=== PATIENT | male | born 1965 | race Hispanic/Latino ===

== ENCOUNTER 2018-09-01 10:27 | Observation (INO) | payer BC, OTHER ==
[~2018-09-01] VITALS: Ht 167.6 cm; Wt 81.6 kg
[~2018-09-01 10:27] MED LIST: GLYBURIDE5 MG PO; LOVASTATIN20 MG PO; METFORMIN HCL1000 MG PO
[2018-09-01] MEDS ORDERED: ASPIRIN 81 MG CHEW TAB PO ONE (10:30)
[2018-09-01] MEDS ORDERED: ONDANSETRON HCL INJ 2 MG/ML VIAL IV ONE (11:00)
[2018-09-01] MEDS ORDERED: MORPHINE SULFATE INJ 4 MG/ML INJ IV ONE (11:00)
[2018-09-01 11:10] LABS: BASOPHILS # (AUTO) 0.1 (0.0-0.1); BASOPHILS % 0.6 % (0.0-1.0); EOSINOPHILS # (AUTO) 0.1 (0.0-0.4); EOSINOPHILS % 0.9 % (0.0-6.0); HEMATOCRIT 45.2 % (38.2-49.6); HEMOGLOBIN 15.9 g/dL (14.0-18.0); LYMPHOCYTES # (AUTO) 2.5 (1.0-3.2); LYMPHOCYTES % 18.5 % (18.0-39.1); MEAN CORPUSCULAR HEMOGLOBIN 30.6 pg (28-32); MEAN CORPUSCULAR HGB CONC 35.2 g/dL (31-35); MEAN CORPUSCULAR VOLUME 87.1 fL (81-99); MONOCYTES # (AUTO) 0.9 (0.2-0.8); MONOCYTES % 6.7 % (4.4-11.3); NEUTROPHILS # (AUTO) 9.9 (2.1-6.9); NEUTROPHILS % 72.7 % (38.7-80.0); PLATELET COUNT 204 x10e3/uL (140-360); RED BLOOD COUNT 5.19 x10e6/uL (4.3-5.7)
--- NOTE | 2018-09-01 11:11 | Diagnostic Imaging Report ---
EXAMINATION: CHEST SINGLE (PORTABLE) COMPARISON: None INDICATION: Chest tightness ^ERMD ORDER ^[id number] ^1038 ^Y DISCUSSION: Frontal view of the chest obtained at 1042 hours. HEART AND MEDIASTINUM: The cardiomediastinal silhouette is unremarkable. LINES: None. LUNGS: Diffusely hyperinflated. Nodule in the right upper lobe measures 10 mm. No infiltrate PLEURA: No pleural effusion or pneumothorax. BONES AND SOFT TISSUES: No focal osseous lesion. The soft tissues are normal. IMPRESSION: Pulmonary hyperinflation suggestive of small airways disease. Small right upper lobe nodule. Recommend further characterization with CT of the chest on an outpatient basis. Signed by: Dr. Maranda Mitchell MD on 09/01/2018 11:08 AM
[2018-09-01 11:18] LABS: INR 0.9
[2018-09-01 11:19] LABS: PARTIAL THROMBOPLASTIN TIME 26.8 seconds (23.8-35.5)
[2018-09-01 11:20] LABS: CLARITY,URINE SL CLOUDY (CLEAR); COLOR,URINE YELLOW (YELLOW); LEUKOCYTE ESTERASE ,URINE TRACE (NEGATIVE); NITRITE,URINE NEGATIVE (NEGATIVE)
[2018-09-01 11:21] LABS: BILIRUBIN,URINE NEGATIVE (NEGATIVE); KETONES,URINE NEGATIVE (NEGATIVE); PROTEIN,URINE DIPSTICK NEGATIVE (NEGATIVE); URINE UROBILINOGEN 0.2 mg/dL (0.2 - 1)
[2018-09-01 11:26] LABS: ALANINE AMINOTRANSFERASE 18 IU/L (0-55); ALBUMIN 3.5 g/dL (3.5-5.0); ALBUMIN/GLOBULIN RATIO 0.9 (0.8-2.0); ALKALINE PHOSPHATASE 83 IU/L (40-150); ANION GAP 12.8 mmol/L (8-16); BLOOD UREA NITROGEN 15 mg/dL (7-26); BUN/CREATININE RATIO 14 (6-25); CALCIUM 9.2 mg/dL (8.4-10.2); CARBON DIOXIDE 23 mmol/L (22-29); CHLORIDE 101 mmol/L (98-107); CREATINE KINASE 49 IU/L (30-200); CREATININE, SERUM 1.04 mg/dL (0.72-1.25); EST GLOMERULAR FILTRATION RATE > 60 ML/MIN (60-); GLUCOSE 383 mg/dL (74-118); POTASSIUM 3.8 mmol/L (3.5-5.1); SODIUM 133 mmol/L (136-145)
[2018-09-01 11:31] LABS: BACTERIA,URINE RARE /HPF; EPITHELIAL CELLS,URINE MODERATE /LPF
[2018-09-01 11:32] LABS: YEAST,URINE RARE
[2018-09-01 11:34] LABS: STREPTOCOCCUS GRP A ANTIGEN POSITIVE (NEGATIVE)
[2018-09-01 11:41] LABS: INFLUENZAE A&B ANTIGEN (RAPID) NEGATIVE (NEGATIVE)
[2018-09-01] MEDS ORDERED: INSULIN REGULAR, HUMAN 100 UNIT/1 ML 3ML VIAL IV ONE (11:45)
[2018-09-01] MEDS: SODIUM CHLORIDE 0.9% 1000ML 1,000 ML IV SCH ×2 (11:55→21:03)
--- NOTE | 2018-09-01 12:00 | NUR ---
IV NS GOING AT 100 ML PER HOUR; INSULIN GIVEN IV; PT GCS 15 PINK WARM DRY; INSTRUCTED TO PT AND THAT WE WILL RE-CHECK THE GLUCOSE AT 1230 AND TO NOTIFY DESK IF HE GETS DIZZY, WEAK, SWEATTY OR UNWELL IN ANY WAY. CALL [place].
[2018-09-01] MEDS ORDERED: PENICILLIN G BENZATHINE LA 1.2 MU TBX IM NR (12:45)
[2018-09-01] MEDS ORDERED: DEXTROSE 50% SYRINGE 50 ML IV PRN (13:15)
[2018-09-01] MEDS ORDERED: MORPHINE SULFATE 2 MG/ML SYR IV PRN (13:15)
--- OUTSIDE RECORDS SUMMARY | 2018-09-01 13:39 | XMS REPORT ---
Author Author [facility] Address Unknown Phone Unavailable Care Team Providers Care Digital Marketing Specialist Name Role Phone Audi COLEMAN Unavailable Unavailable Problems This patient has no known problems. Allergies, Adverse Reactions, Alerts This patient has no known allergies or adverse reactions. Medications This patient has no known medications. Results Test Description Test Time Test Comments Text Results Atomic Results Result Comments CHEST SINGLE (PORTABLE) 2018-09-01 11:06:00 [place] [address] Patient Name: DILAN WARREN MR #: [id number] : 1965 Age/Sex: 53/M Req #: [id number] Adm Physician: Ordered by: TEJA FONG CAPTAIN WAITER Report #: [id number] Location: ER Room/Bed: Procedure: [id number] DX/CHEST SINGLE (PORTABLE) Exam Date: 09/01/18 Exam Time: 1038 REPORT STATUS: Signed EXAMINATION: CHEST SINGLE (PORTABLE) COM PARISON: None INDICATION: Chest tightness ERMD ORDER [id number] Y DISCUSSION: Frontal view of the chest obtained at 1042 hours. HEART AND MEDIASTINUM: The cardiomediastinal silhouette is unremarkable. LINES: None. LUNGS: Diffusely hyperinflated. Nodule in the right upper lobe measures 10 mm. No infiltrate PLEURA: No pleural effusion or pneumothorax. BONES AND SOFT TISSUES: No focal osseous lesion. The soft tissues are normal. IMPRESSION: Pulmonary hyperinflation suggestive of small airways disease. Small right upper lobe nodule. Recommend further characterization with CT of the chest on an outpatient basis. Signed by: Dr. Dia Mitchell MD on 09/01/2018 11:08 AM Dictated By: DIA MITCHELL MD 1108 Transcribed By: PRITESH on 09/01/181107 COPY TO: TEJA FONG CAPTAIN WAITER
[2018-09-01] MEDS ORDERED: KETOROLAC TROMETHAMINE 30 MG/ML VIAL IV PRN (15:45)
[2018-09-01] MEDS: ONDANSETRON HCL INJ 2 MG/ML VIAL IV PRN (16:30)
[2018-09-01] MEDS: ASPIRIN 81 MG ENTERIC COATED PO SCH (16:30)
[2018-09-01] MEDS: INSULIN LISPRO 100 UNIT/1 ML 3ML VIAL SQ SCH ×2 (17:10→20:46)
[2018-09-01 19:31] LABS: CREATINE KINASE MB 0.3 ng/mL (0-5.0)
[2018-09-02 02:29] LABS: CREATINE KINASE MB 0.3 ng/mL (0-5.0)
[2018-09-02] MEDS: MORPHINE SULFATE INJ 4 MG/ML INJ IV PRN ×3 (05:37→19:55)
[2018-09-02] MEDS: ONDANSETRON HCL INJ 2 MG/ML VIAL IV PRN ×2 (05:37→13:47)
[2018-09-02] MEDS: SODIUM CHLORIDE 0.9% 1000ML 1,000 ML IV SCH (05:37)
[2018-09-02 06:42] LABS: BASOPHILS # (AUTO) 0.1 (0.0-0.1); BASOPHILS % 0.8 % (0.0-1.0); EOSINOPHILS # (AUTO) 0.2 (0.0-0.4); HEMOGLOBIN 15.1 g/dL (14.0-18.0); LYMPHOCYTES # (AUTO) 2.9 (1.0-3.2); LYMPHOCYTES % 24.4 % (18.0-39.1); MEAN CORPUSCULAR HEMOGLOBIN 30.5 pg (28-32); MEAN CORPUSCULAR HGB CONC 34.3 g/dL (31-35); MEAN CORPUSCULAR VOLUME 88.9 fL (81-99); MONOCYTES # (AUTO) 0.8 (0.2-0.8); MONOCYTES % 6.8 % (4.4-11.3); NEUTROPHILS # (AUTO) 7.7 (2.1-6.9); NEUTROPHILS % 65.6 % (38.7-80.0); PLATELET COUNT 208 x10e3/uL (140-360); RED BLOOD COUNT 4.95 x10e6/uL (4.3-5.7); RED CELL DISTRIBUTION WIDTH 12.1 % (11.7-14.4)
--- NOTE | 2018-09-02 06:52 | NUR ---
RECEIVED REPORT FROM SHANELL Kraus RN FOR CONTINUATION OF CARE
[2018-09-02 06:59] LABS: ALANINE AMINOTRANSFERASE 17 IU/L (0-55); ALBUMIN/GLOBULIN RATIO 0.7 (0.8-2.0); ALKALINE PHOSPHATASE 78 IU/L (40-150); ANION GAP 12.2 mmol/L (8-16); BLOOD UREA NITROGEN 20 mg/dL (7-26); BUN/CREATININE RATIO 21 (6-25); CALCIUM 8.9 mg/dL (8.4-10.2); CARBON DIOXIDE 21 mmol/L (22-29); CHLORIDE 108 mmol/L (98-107); CHOL/HDL RATIO 5.1 (3.9-4.7); CHOLESTEROL 209 MD/DL (0-199); CREATININE, SERUM 0.94 mg/dL (0.72-1.25); EST GLOMERULAR FILTRATION RATE > 60 ML/MIN (60-); GLUCOSE 225 mg/dL (74-118); HDL CHOLESTEROL 41 MG/DL (40-60); LDL CHOLESTEROL 103 MG/DL (60-130); POTASSIUM 4.2 mmol/L (3.5-5.1); SODIUM 137 mmol/L (136-145); TRIGLYCERIDES 327 MG/DL (0-149)
[2018-09-02] MEDS: INSULIN LISPRO 100 UNIT/1 ML 3ML VIAL SQ SCH ×4 (08:26→21:50)
[2018-09-02] MEDS: ASPIRIN 81 MG ENTERIC COATED PO SCH (08:49)
[2018-09-02] MEDS ORDERED: ALBUTEROL/IPRATROPIUM 3 ML NEB NEB PRN (09:00)
--- NOTE | 2018-09-02 09:18 | NUR ---
PT WENT FOR CT CHEST
[2018-09-02] MEDS: FLUTICASONE PROPIONATE NASAL SPRAY NS SCH ×2 (09:55→16:51)
[2018-09-02] MEDS: LORATADINE 10 MG TAB PO SCH (09:55)
[2018-09-02] MEDS: CEFTRIAXONE SOD 1 GM/NS 50 ML 50 ML IV SCH (09:55)
[2018-09-02] MEDS: GUAIFENESIN 600 MG TAB PO SCH ×2 (09:55→21:50)
--- NOTE | 2018-09-02 09:55 | Diagnostic Imaging Report ---
EXAM: CT Chest without contrast INDICATION: Lung nodule on CXR. COMPARISON: Chest radiograph 09/01/2018. TECHNIQUE: Chest was scanned utilizing a multidetector helical scanner from the lung apex through the level of the adrenal glands without administration of IV contrast. Coronal and sagittal reformations were obtained. Routine protocol was performed. Dose modulation, iterative reconstruction, and/or weight based adjustment of the mA/kV was utilized to reduce the radiation dose to as low as reasonably achievable. RADIATION DOSE: Total DLP: 551.3 mGy*cm COMPLICATIONS: None FINDINGS: LINES/ TUBES: None. LUNGS AND AIRWAYS: The nodular opacity noted on chest radiograph in the right midlung likely represents a bone island in the right anterior fourth rib. Calcified granuloma in the right middle lobe and left lower lobe. Mild biapical pleural-parenchymal opacity. Scattered centrilobular and paraseptal emphysematous changes. Dependent atelectatic changes. PLEURA: The pleural spaces are clear. HEART AND MEDIASTINUM: The thyroid gland is normal. No mediastinal, hilar or axillary lymphadenopathy. No cardiomegaly or pericardial effusion. Scattered atherosclerotic changes within the thoracic aorta, branch vessels, and coronary vessels. UPPER ABDOMEN: Limited non-contrast views of the upper abdomen show no abnormality within the visualized liver, spleen, or adrenal glands. BONES/SOFT TISSUES: No acute bony findings. No suspicious lytic or blastic lesions. IMPRESSION: The nodular opacity noted on chest radiograph in the right midlung corresponds to likely rib bone island. Mild emphysematous changes of the lungs. Scattered coronary atherosclerosis. Signed by: Dr. Ashwini Lopez MD on 09/02/2018 9:52 AM
--- NOTE | 2018-09-02 13:38 | NUR ---
PT RESTING QUIETLY WATCHING TV. C/O A SLIGHT PAIN IN THE SINUSES. ASKED FOR SOME PAIN MEDICINE
--- NOTE | 2018-09-02 15:18 | NUR ---
PT SAYS HE IS FEELING BETTER AFTER THE PAIN MED. PAIN NOW 10/05. RESTING QUIETLY WAITING FOR A ROOM
--- NOTE | 2018-09-02 18:22 | NUR ---
PT C/O SINUS PAIN 01/02. PT AWAITING ADMIT AT THIS TIME. NAD
--- NOTE | 2018-09-02 19:55 | NUR ---
PT PLACED ON TELE [id number]
[2018-09-02 20:15] VITALS: BP 116/67
--- NOTE | 2018-09-02 20:15 | NUR ---
Received patient from ER via stretcher. AAOx3 and obeys commands. No s/s of resp distress. Denies pain at this time. Has IV to L arm 20# s/l. Skin intact and no wounds. Amb to restroom. Oriented to room. Bed locked lowest position and call light within reach and instructed to call for assistance.
[2018-09-02 20:35] VITALS: BP 116/67
[2018-09-02] MEDS ORDERED: ATORVASTATIN 20 MG TAB PO SCH (21:00)
[2018-09-02 22:07] VITALS: BP 116/67
[2018-09-03] VITALS: BP 100/59
[2018-09-03 04:00] VITALS: BP 107/61
[2018-09-03] MEDS: MORPHINE SULFATE INJ 4 MG/ML INJ IV PRN (04:16)
[2018-09-03] MEDS: INSULIN LISPRO 100 UNIT/1 ML 3ML VIAL SQ SCH (08:00)
[2018-09-03 08:40] VITALS: BP 118/59
[2018-09-03] MEDS: CEFTRIAXONE SOD 1 GM/NS 50 ML 50 ML IV SCH (08:44)
[2018-09-03] MEDS: FLUTICASONE PROPIONATE NASAL SPRAY NS SCH (08:44)
[2018-09-03] MEDS: ASPIRIN 81 MG ENTERIC COATED PO SCH (08:45)
[2018-09-03] MEDS: LORATADINE 10 MG TAB PO SCH (08:45)
[2018-09-03] MEDS: GUAIFENESIN 600 MG TAB PO SCH (08:45)
--- NOTE | 2018-09-03 08:53 | NUR ---
MD BRAVO PAGED AT THIS TIME FOR CHEST PAIN CONSULT.
--- NOTE | 2018-09-03 10:45 | NUR ---
PT CLEARED FROM STANDPOINT, MD HODGSON PAGED TO NOTIFY AND POSSIBLE DISCHARGE. LEFT VM AWAITING CALL BACK
[2018-09-03 11:30] VITALS: BP 123/68
--- NOTE | 2018-09-03 11:41 | Consultation ---
DATE OF CONSULTATION: September 03, 2018 CARDIOLOGY CONSULTATION Thank you so much for asking me to see this nice man in consultation. Mr. Dawn is a pleasant 53-year-old man known to us from previous evaluations, who presented to the emergency room with a complaint of left chest discomfort and sore throat. HISTORY OF PRESENT ILLNESS: Patient reports he has felt "a little sticking" discomfort in the left mid chest, intermittent, but has also developed sore throat and more recently cough. PAST MEDICAL HISTORY: Significant for type 2 adult onset diabetes which he has been taking no medications now for a couple of years since he was without insurance. He had previous cardiac evaluation in 2007 and 2013. They each were negative. He has had remote tonsillectomy. Evidently was taking no medications at home. PERSONAL/SOCIAL HISTORY: Does not smoke. FAMILY HISTORY: He had an uncle who of coronary disease. PHYSICAL EXAMINATION GENERAL: At this time shows a pleasant, obese, man who is alert and responsive. VITALS: Blood pressure 118/59. Pulse is 80 and regular. HEENT: Unremarkable. Pharynx shows erythema. THORAX: Heart sounds S1, S2 are equal. Chest wall is nontender. No murmurs. Lungs are clear. ABDOMEN: Protuberant. EXTREMITIES: With no cyanosis, clubbing or edema. EKG on the chart shows sinus rhythm without ST or T-wave changes. Echocardiogram shows normal left ventricular function, EF about 50%. His troponins are normal x3. Strep screen is positive for group A streptococcus. Urinalysis shows 11 to 20 white cells per high-powered field. ASSESSMENTS 1. Strep throat. 2. No active cardiac process with previous cardiac evaluations in 2007 and 2013 being unremarkable. 3. Uncontrolled diabetes, on no medications. PLAN: Agree with current management and I believe his cardiac status will be stable to be monitored as an outpatient. Thank you for asking to see him in consultation. Job#: [id number] TA
== END 2018-09-03 12:01 | disposition home or self-care (01) ==
LOC: ER 10:27 → ERHOLD 13:36 → MED/SURG2 09-02 20:05
PROVIDERS: ADMIT Internal Medicine; ATTEND Internal Medicine
DX: R07.89 Other chest pain (principal); J02.0 Streptococcal pharyngitis; I10 Essential (primary) hypertension; E11.65 Type 2 diabetes mellitus with hyperglycemia; E78.5 Hyperlipidemia, unspecified; T38.3X6A Underdosing of insulin and oral hypoglycemic [antidiabetic] drugs, initial encounter; Z91.128 Patient's intentional underdosing of medication regimen for other reason; Z83.3 Family history of diabetes mellitus; Z82.49 Family history of ischemic heart disease and other diseases of the circulatory system; K44.9 Diaphragmatic hernia without obstruction or gangrene; K21.9 Gastro-esophageal reflux disease without esophagitis; R91.8 Other nonspecific abnormal finding of lung field; R94.31 Abnormal electrocardiogram [ECG] [EKG]
CPT/HCPCS: 36415 ×3; 71045; 71250; 80053 ×2; 80061; 81001; 82550 ×2; 82553 ×2; 82948 ×3; 83036; 83518; 83880; 84484 ×2; 85025 ×2; 85610; 85730; 87400; 93005; 93306; 99284; G0378 ×3; J0561; J0696 ×2; J1817; J1885; J2270 ×3; J2405 ×2; J7030 ×2